=== PATIENT | male | born 1955 | race Caucasian/White ===

== ENCOUNTER 2018-02-12 07:52 | Observation (INO) | payer OTHER ==
--- NOTE | 2018-02-12 08:31 | EDPHY ---
H & P Stated Complaint: fever, body aches Time Seen by Provider: 02/12/18 07:57 HPI/ROS: CHIEF COMPLAINT: Fever, rigors, new rash HISTORY OF PRESENT ILLNESS: The patient presents to the ED with a one-week history of fever and rigors. The patient reports a temperature to 102.5 degrees at home. The patient was seen in the ED a week ago with similar symptoms. At that point time his workup was negative. He had started taking azithromycin which he was advised to continue. The patient also tells me that he was on Bactrim during that ED visit for prostatitis. The patient just completed a 10 day course of Bactrim yesterday. The patient denies any acute pain. He has chronic urinary issues from BPH. He denies acute cough or congestion. The patient does complain of myalgias and arthralgias. REVIEW OF SYSTEMS: A comprehensive 10 point review of systems is otherwise negative aside from elements mentioned in the history of present illness. Source: Patient Exam Limitations: No limitations - Personal History Current Tetanus/Diphtheria Vaccine: Yes Current Tetanus Diphtheria and Acellular Pertussis (TDAP): Yes - Medical/Surgical History Hx Asthma: Yes Hx Chronic Respiratory Disease: Yes Hx Diabetes: No Hx Cardiac Disease: No Hx Renal Disease: No Hx Cirrhosis: No Hx Alcoholism: No Hx HIV/AIDS: No Hx Splenectomy or Spleen Trauma: No Other PMH: kidney stones, glaucoma, COPD, asthma, PNA - Social History Smoking Status: Never smoked - Physical Exam Exam: General Appearance: Alert, no distress Eyes: Pupils equal and round no pallor or injection ENT, Mouth: Mucous membranes moist Respiratory: There are no retractions, lungs are clear to auscultation Cardiovascular: Regular rate and rhythm Gastrointestinal: Abdomen is soft and nontender, no masses, bowel sounds normal Neurological: A&O, normal motor function, normal sensory exam, normal cranial nerves Skin: Macular papular rash Musculoskeletal: Neck is supple nontender Extremities: symmetrical, full range of motion Constitutional: Initial Vital Signs Temperature (C) 37.2 C 02/12/18 07:58 Heart Rate 90 02/12/18 07:58 Respiratory Rate 20 02/12/18 07:58 Blood Pressure 99/72 L 02/12/18 07:58 O2 Sat (%) 98 02/12/18 07:58 O2 Delivery Mode Room Air Allergies/Adverse Reactions: No Known Allergies Allergy (Unverified 02/12/18 07:56) Home Medications: Medication Instructions Recorded Albuterol 02/05/18 Qvar 40 Redihaler (*) 02/05/18 Serovent 02/05/18 Flomax 02/12/18 Vyzulta 02/12/18 Medical Decision Making ED Course/Re-evaluation: Discussion: Patient presents the ED with fever, rigors and now a rash in the setting of recent antibiotic therapy for presumed prostatitis with Bactrim and azithromycin for a presumed upper respiratory infection. The patient was seen in the ED week ago and had negative blood cultures, an unremarkable chest x-ray and no identifiable source of infection noted on his exam. Workup in the emergency department demonstrates a normal CBC, the patient does have hyponatremia, normal renal function, normal sed rate, slightly elevated CRP and an unremarkable urinalysis. The patient's systemically feels quite ill. I do think that he likely is having a drug reaction from Bactrim as his symptoms did began approximately 3 days after taking this medication. Given the breath of his constitutional symptoms and slight hyponatremia I do feel that he should be admitted for observation to ensure a more significant drug reaction has not developing. Consultation was made with the hospitalist service at 9:20 a.m.. The patient will be admitted by Dr. Sykes today. The patient did receive 1 L of normal saline for dehydration and mild hyponatremia. The patient also received 1 mg of Ativan. Differential Diagnosis: Differential diagnosis considered includes dehydration, drug reaction, metabolic abnormality, viral syndrome, urinary tract infection, sepsis - Data Points Laboratory Results: Laboratory Results 02/12/18 08:10 02/12/18 08:10 02/12/18 02/12/18 02/12/18 08:45 08:45 08:10 WBC RBC Hgb Hct MCV MCH MCHC RDW Plt Count MPV Neut % (Auto) Lymph % (Auto) [place] % (Auto) Eos % (Auto) Baso % (Auto) Nucleat RBC Rel Count Absolute Neuts (auto) Absolute Lymphs (auto) Absolute Monos (auto) Absolute Eos (auto) Absolute Basos (auto) Absolute Nucleated RBC Immature Gran % Immature Gran # ESR VBG Lactic Acid 1.7 mmol/L mmol/L (0.7-2.1) Sodium 129 mEq/L L mEq/L (135-145) Potassium 4.0 mEq/L mEq/L (3.3-5.0) Chloride 97 mEq/L mEq/L (97-110) Carbon Dioxide 22 mEq/l mEq/l (22-31) Anion Gap 10 mEq/L mEq/L (6-14) BUN 24 mg/dL H mg/dL (7-23) Creatinine 1.2 mg/dL mg/dL (0.7-1.3) Estimated GFR > 60 Glucose 143 mg/dL H mg/dL (70-100) Calcium 9.3 mg/dL mg/dL (8.5-10.4) C-Reactive Protein 34.2 mg/L H mg/L (<10.0) Urine Color YELLOW Urine Appearance HAZY Urine pH 5.0 (5.0-7.5) Ur Specific [place] 1.021 (1.002-1.030) Urine Protein NEGATIVE (NEGATIVE) Urine Ketones 1+ H (NEGATIVE) Urine Blood NEGATIVE (NEGATIVE) Urine Nitrate NEGATIVE (NEGATIVE) Urine Bilirubin NEGATIVE (NEGATIVE) Urine Urobilinogen NEGATIVE EU EU (0.2-1.0) Ur Leukocyte Esterase NEGATIVE (NEGATIVE) Urine Glucose NEGATIVE (NEGATIVE) 02/12/18 08:10 WBC 8.00 10^3/uL 10^3/uL (3.80-9.50) RBC 5.30 10^6/uL 10^6/uL (4.40-6.38) Hgb 15.4 g/dL g/dL (13.7-17.5) Hct 42.9 % % (40.0-51.0) MCV 80.9 fL L fL (81.5-99.8) MCH 29.1 pg pg (27.9-34.1) MCHC 35.9 g/dL g/dL (32.4-36.7) RDW 13.5 % % (11.5-15.2) Plt Count 172 10^3/uL 10^3/uL (150-400) MPV 10.1 fL fL (8.7-11.7) Neut % (Auto) 69.1 % % (39.3-74.2) Lymph % (Auto) 14.3 % L % (15.0-45.0) [place] % (Auto) 10.3 % % (4.5-13.0) Eos % (Auto) 3.3 % % (0.6-7.6) Baso % (Auto) 0.4 % % (0.3-1.7) Nucleat RBC Rel Count 0.0 % % (0.0-0.2) Absolute Neuts (auto) 5.54 10^3/uL 10^3/uL (1.70-6.50) Absolute Lymphs (auto) 1.14 10^3/uL 10^3/uL (1.00-3.00) Absolute Monos (auto) 0.82 10^3/uL H 10^3/uL (0.30-0.80) Absolute Eos (auto) 0.26 10^3/uL 10^3/uL (0.03-0.40) Absolute Basos (auto) 0.03 10^3/uL 10^3/uL (0.02-0.10) Absolute Nucleated RBC 0.00 10^3/uL 10^3/uL (0-0.01) Immature Gran % 2.6 % H % (0.0-1.1) Immature Gran # 0.21 10^3/uL H 10^3/uL (0.00-0.10) ESR 3 MM/HR MM/HR (0-20) VBG Lactic Acid Sodium Potassium Chloride Carbon Dioxide Anion Gap BUN Creatinine Estimated GFR Glucose Calcium C-Reactive Protein Urine Color Urine Appearance Urine pH Ur Specific [place] Urine Protein Urine Ketones Urine Blood Urine Nitrate Urine Bilirubin Urine Urobilinogen Ur Leukocyte Esterase Urine Glucose Departure - Departure Disposition: [facility] Acute Clinical Impression: Drug reaction, Hyponatremia, Rigors Condition: Good Referrals: Jeramie Wagner MD [Primary Care Provider] - As per Instructions
[2018-02-12 08:34] LABS: PLATELET COUNT 172 10^3/uL (150-400)
[2018-02-12] MEDS ORDERED: LORazepam 2 MG/ML INJ IVP ONE (09:25)
[2018-02-12] MEDS ORDERED: NS 1,000 ML IV ONE (09:25)
[2018-02-12] MEDS ORDERED: ACETAMINOPHEN 500 MG TAB ONE (11:09)
[2018-02-12] MEDS ORDERED: ACETAMINOPHEN 500 MG TAB PO ONE (11:10)
[2018-02-12] MEDS ORDERED: ONDANSETRON 4 MG/2 ML VIAL IVP PRN (13:14)
[2018-02-12] MEDS ORDERED: ONDANSETRON DISINTEGRATING 4 MG TAB PO PRN (13:14)
[2018-02-12] MEDS ORDERED: OXYCODONE/APAP 5/325 TAB PO PRN (13:14)
[2018-02-12] MEDS ORDERED: ACETAMINOPHEN 325 MG TAB PO PRN (13:14)
[2018-02-12] MEDS: NS 1,000 ML IV SCH (14:07)
[2018-02-12] MEDS ORDERED: IBUPROFEN 200 MG TAB PO PRN (16:15)
[2018-02-12] MEDS ORDERED: MULTIVITAMINS 1 EACH TAB PO SCH (16:15)
[2018-02-12] MEDS ORDERED: ALBUTEROL 60 PUFFS/8 GM MDI IH PRN (16:15)
[2018-02-12] MEDS ORDERED: FAMOTIDINE 20 MG TAB PO PRN (16:15)
--- NOTE | 2018-02-12 19:21 | PDGENHP ---
History and Physical - Chief Complaint Fever - History of Present Illness This is a 62 yo male who p/w intermittent fever x 8 days. His temperature has been as high as 102.5 degrees. He denies any resp symptoms. He thinks he may have had flu like symptoms early about a week ago but does not have any currently. He does not have abdominal pain, diarrhea, or other symptoms. He denies flank pain. He denies urinary symptoms other than his usual difficulty with urination which is long standing and secondary to BPH. He reports that around Jan 29 he was seen by his Urologist and was started on Fesoteridine as well as Bactrim. He is unsure why he was started on Bactrim but thinks it may have been for prostatitis but reports a prostate exam which was unremarkable. He stopped the Fesoterdine 6 day later as he started having fevers and he attributed them to the Fesoteridine. He continued taking Bactrium until the 10 of February. He reports feeling like he was getting a pneumonia about a week ago and presented to the ER for evaluation. At that time he had started himself on a Zpack. W/u was negative and he was instructed to continue his Azithromycin which he took for a total of 5 days. In addition, he continued taking the Bactrim. In the ER he was noted to have a fever but otherwise vital signs were unremarkable. He had a urinalysis which was not indicative of infection. He was noted to have a low Na. He was given Ativan and Normal Saline. He was also noted to have a new rash involving his torso and back. No abx were started. He reports that with the fevers he gets chills and sweats. He reports some weight loss over the past month but attributes this to decreased appetite and low oral intake. He has not had recent travel. He does not know of any sick contacts. He does not have any hx of cancer. He has had BPH for several years. He notes that his PSA was recently elevated. He has a family hx of colon polyps and he gets colonoscopies every 5 years. He is due for one at this time. His colonoscopies to date are unremarkable. He reports bilateral knee pain, but denies pain to other joints. He denies sore throat. He denies RANGEL or neck pain. He denies pruritis PMH: kidney stones, glaucoma, COPD, asthma, PNA, BPH - Social History Smoking Status: Never smoked. He is . 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 [facility] FMHx: non contributory History Information - Allergies/Home Medication List Allergies/Adverse Reactions: No Known Allergies Allergy (Verified 02/12/18 10:02) Home Medications: Albuterol [Proventil Inhaler HFA (*)] 1 - 2 puffs IH Q4H PRN 02/05/18 [Last Taken 02/12/18] Beclomethasone Qvar 80 [Qvar 80 Redihaler (*)] 1 inh IH DAILY 02/05/18 [Last Taken 02/12/18] Salmeterol Diskus [Serevent Diskus (*)] 1 puffs IH BID 02/05/18 [Last Taken ] Hydrocodone/APAP 5/325 [[place] 5/325 (*)] 1 each PO DAILY PRN 02/12/18 [Last Taken Unknown] Ibuprofen [Motrin (*)] 200 mg PO DAILY PRN 02/12/18 [Last Taken Unknown] LORazepam [Ativan (*)] 0.25 mg PO HS PRN 02/12/18 [Last Taken Unknown] Latanoprostene Bunod [Vyzulta] 1 drop EACHEYE HS 02/12/18 [Last Taken 02/11/18] Multivitamins [Multivitamin (*)] 1 each PO Q7D 02/12/18 [Last Taken Unknown] Ranitidine HCl [Zantac 75] 75 mg PO DAILY PRN 02/12/18 [Last Taken Unknown] Tamsulosin HCl [Flomax 0.4 MG (*)] 0.4 mg PO DAILY 02/12/18 [Last Taken 02/12/18 ] guaiFENesin [Mucinex 600 MG (*)] 600 mg PO Q4HRS 02/12/18 [Last Taken 02/12/18] I have personally reviewed and updated: medical history - Social History Smoking Status: Never smoked Review of Systems Review of Systems: ROS: 10pt was reviewed & negative except for what was stated in HPI & below Physical Exam Physical Exam: Temp Pulse Resp BP Pulse Ox 37.2 C 82 19 116/68 95 02/12/18 15:50 02/12/18 15:50 02/12/18 15:50 02/12/18 15:50 02/12/18 15:50 O2 (L/minute) 1 Constitutional: no apparent distress Eyes: PERRL Ears, Nose, Mouth, Throat: moist mucous membranes, hearing normal Cardiovascular: regular rate and rhythym, no murmur, rub, or gallop, No edema Respiratory: no respiratory distress, no rales or rhonchi, clear to auscultation Gastrointestinal: normoactive bowel sounds, soft, non-tender abdomen, No guarding, No rebound, No distension Skin: warm, other (macular papular erythematous rash involving chest and back) Neurologic: AAOx3 Psychiatric: interacting appropriately, not anxious, not encephalopathic Lab Data & Imaging Review 02/12/18 08:10 02/12/18 13:13 WBC 8.00 10^3/uL (3.80-9.50) 02/12/18 08:10 RBC 5.30 10^6/uL (4.40-6.38) 02/12/18 08:10 Hgb 15.4 g/dL (13.7-17.5) 02/12/18 08:10 Hct 42.9 % (40.0-51.0) 02/12/18 08:10 MCV 80.9 fL (81.5-99.8) L 02/12/18 08:10 MCH 29.1 pg (27.9-34.1) 02/12/18 08:10 MCHC 35.9 g/dL (32.4-36.7) 02/12/18 08:10 RDW 13.5 % (11.5-15.2) 02/12/18 08:10 Plt Count 172 10^3/uL (150-400) 02/12/18 08:10 MPV 10.1 fL (8.7-11.7) 02/12/18 08:10 Neut % (Auto) 69.1 % (39.3-74.2) 02/12/18 08:10 Lymph % (Auto) 14.3 % (15.0-45.0) L 02/12/18 08:10 [place] % (Auto) 10.3 % (4.5-13.0) 02/12/18 08:10 Eos % (Auto) 3.3 % (0.6-7.6) 02/12/18 08:10 Baso % (Auto) 0.4 % (0.3-1.7) 02/12/18 08:10 Nucleat RBC Rel Count 0.0 % (0.0-0.2) 02/12/18 08:10 Absolute Neuts (auto) 5.54 10^3/uL (1.70-6.50) 02/12/18 08:10 Absolute Lymphs (auto) 1.14 10^3/uL (1.00-3.00) 02/12/18 08:10 Absolute Monos (auto) 0.82 10^3/uL (0.30-0.80) H 02/12/18 08:10 Absolute Eos (auto) 0.26 10^3/uL (0.03-0.40) 02/12/18 08:10 Absolute Basos (auto) 0.03 10^3/uL (0.02-0.10) 02/12/18 08:10 Absolute Nucleated RBC 0.00 10^3/uL (0-0.01) 02/12/18 08:10 Immature Gran % 2.6 % (0.0-1.1) H 02/12/18 08:10 Immature Gran # 0.21 10^3/uL (0.00-0.10) H 02/12/18 08:10 ESR 3 MM/HR (0-20) 02/12/18 08:10 VBG Lactic Acid 1.7 mmol/L (0.7-2.1) 02/12/18 08:45 Sodium 128 mEq/L (135-145) L 02/12/18 13:13 Potassium 3.6 mEq/L (3.3-5.0) 02/12/18 13:13 Chloride 102 mEq/L (97-110) 02/12/18 13:13 Carbon Dioxide 17 mEq/l (22-31) L 02/12/18 13:13 Anion Gap 9 mEq/L (6-14) 02/12/18 13:13 BUN 23 mg/dL (7-23) 02/12/18 13:13 Creatinine 1.1 mg/dL (0.7-1.3) 02/12/18 13:13 Estimated GFR > 60 02/12/18 13:13 Glucose 106 mg/dL (70-100) H 02/12/18 13:13 Calcium 8.1 mg/dL (8.5-10.4) L 02/12/18 13:13 C-Reactive Protein 34.2 mg/L (<10.0) H 02/12/18 08:10 Procalcitonin 0.69 ng/mL (0.02-0.10) H 02/12/18 08:10 Urine Color YELLOW 02/12/18 08:45 Urine Appearance HAZY 02/12/18 08:45 Urine pH 5.0 (5.0-7.5) 02/12/18 08:45 Ur Specific [place] 1.021 (1.002-1.030) 02/12/18 08:45 Urine Protein NEGATIVE (NEGATIVE) 02/12/18 08:45 Urine Ketones 1+ (NEGATIVE) H 02/12/18 08:45 Urine Blood NEGATIVE (NEGATIVE) 02/12/18 08:45 Urine Nitrate NEGATIVE (NEGATIVE) 02/12/18 08:45 Urine Bilirubin NEGATIVE (NEGATIVE) 02/12/18 08:45 Urine Urobilinogen NEGATIVE EU (0.2-1.0) 02/12/18 08:45 Ur Leukocyte Esterase NEGATIVE (NEGATIVE) 02/12/18 08:45 Urine Glucose NEGATIVE (NEGATIVE) 02/12/18 08:45 Assessment & Plan Assessment: #Fever of unclear etiology #Rigors #Rash #Hyponatremia #Hx of COPD, not in exacerbation #BPH Plan: Etiology of the Fever is unclear. His infectious w/u, including a CXR is unremarkable. He does not have Leukocytosis. Pc is slightly elevated. His ROS is unremarkable except for the rash. Will have ID evaluate. Will order additional labs. Will order viral studies. CRP elevation is noted He looks mildly dry and will determine Na response to additional IVF. Will also obtain urine studies The rash does not look infectious or cellulitic. It may be a response to the Bactrim. However, I'm not sure if this explains the concurrent fever. Will hold off on abx. He has been on Bactrim between the - and Azithromycin recently for a full treatment regimen. Will hold off on AI workup pending ID evaluation and clinical course Lovenox for DVT proph
[2018-02-12 20:58] LABS: HEPATITIS B SURFACE ANTIGEN NEGATIVE (NEGATIVE)
[2018-02-12 21:03] LABS: HEPATITIS A ANTIBODY IGM (BCH) NEGATIVE (NEGATIVE); HEPATITIS B CORE AB IGM NEGATIVE (NEGATIVE)
[2018-02-12 21:13] LABS: HEPATITIS C ANTIBODY TOTAL NEGATIVE (NEGATIVE); HIV TYPE 1 AND 2 NEGATIVE (NEGATIVE)
[2018-02-12] MEDS: LORazepam 0.5 MG TAB PO PRN (21:47)
[2018-02-12] MEDS: SALMETEROL DISKUS MDI IH SCH (21:53)
[2018-02-12] MEDS: HYDROCODONE/APAP 5/325 TAB PO PRN (23:15)
[2018-02-13] MEDS: NS 1,000 ML IV SCH ×2 (05:03→17:41)
[2018-02-13 05:38] LABS: PLATELET COUNT 193 10^3/uL (150-400)
[2018-02-13 08:52] LABS: INR 1.17 (0.83-1.16); PROTIME(PATIENT) 15.1 SEC (12.0-15.0)
[2018-02-13] MEDS: ENOXAPARIN 40 MG/0.4 ML SYR SC SCH (10:06)
[2018-02-13] MEDS: TAMSULOSIN HCL 0.4 MG CAP PO SCH (10:07)
[2018-02-13] MEDS: BECLOMETHASONE QVAR 80 REDIHALER 120 INH/10.6 GM MDI IH SCH (10:25)
[2018-02-13] MEDS: SALMETEROL DISKUS MDI IH SCH ×2 (10:26→18:45)
--- NOTE | 2018-02-13 11:02 | HOSPPROG ---
Hospitalist Progress Note Assessment/Plan: 62-year-old with 8 days of intermittent fevers, extreme weakness and lethargy is admitted for FUO. Of note he was recently seen on January 29 by his urologist and started on Bactrim. He apparently had an elevated PSA and he was started on the Fesoterodine and Bactrim for possible prostatitis prior to further evaluation of elevation of his PSA. He denies any worsening symptoms of prostatitis IV pain fevers chills prior to this. He has had ongoing urinary frequency for a long time that has been worsening. No other symptoms such as cough abdominal pain. # FUO, I suspect that this is likely a drug reaction from the Bactrim. He continues to have low-grade fevers today but no high fevers. Blood cultures are pending * Will discuss with ID if any further evaluation is warranted since he is improving and if he can be discharged later today with close follow-up or monitor overnight * Would consider to monitor him overnight check blood cultures in the morning * Monitor his fever curve overnight * If he continues to improve he can be discharged tomorrow morning. # BPH: We can likely resume the Fesoterodine as an outpatient once his fever has completely resolved. He will follow up with his Urology as an outpatient # history of kidney stones # COPD/asthma, asymptomatic # glaucoma Subjective: Patient new to me and chart reviewed. Feeling a little bit better was able to eat today but did have an episode of liquid diarrhea. He notes this is the 1st time he has been able to eat quite some time. He has bilateral hip and knee pain but it does get better when he walks. Objective: Vital Signs Temp Pulse Resp BP Pulse Ox 37.3 C 76 16 110/70 96 02/13/18 07:44 02/13/18 07:44 02/13/18 07:44 02/13/18 07:44 02/13/18 07:44 Microbiology 02/12/18 11:05 Respiratory Panel (PCR) - Final Nasal, Sinus - Anaerobic Tube/Swab No Organism Detected By Pcr Laboratory Results 02/13/18 04:51 02/13/18 04:51 02/12/18 02/13/18 02/14/18 05:59 05:59 05:59 Intake Total 1295 Output Total 500 400 Balance 795 -400 PT 15.1 SEC (12.0-15.0) H 02/13/18 04:51 INR 1.17 (0.83-1.16) H 02/13/18 04:51 - Physical Exam Constitutional: no apparent distress Eyes: PERRL Ears, Nose, Mouth, Throat: moist mucous membranes Cardiovascular: regular rate and rhythym Respiratory: no respiratory distress, clear to auscultation Gastrointestinal: normoactive bowel sounds Genitourinary: no bladder fullness Skin: warm Musculoskeletal: normal joint ROM, No muscular tenderness Neurologic: AAOx3 Psychiatric: interacting appropriately ICD10 Worksheet Patient Problems: Problems Problem Status Onset Drug reaction Acute Hyponatremia Acute Rigors Acute
[2018-02-13] MEDS: HYDROCODONE/APAP 5/325 TAB PO PRN (20:55)
[2018-02-13] MEDS: LORazepam 0.5 MG TAB PO PRN (21:00)
[2018-02-14 07:42] VITALS: BP 121/70
[2018-02-14] MEDS: BECLOMETHASONE QVAR 80 REDIHALER 120 INH/10.6 GM MDI IH SCH (09:46)
[2018-02-14] MEDS: SALMETEROL DISKUS MDI IH SCH (09:47)
[2018-02-14] MEDS: TAMSULOSIN HCL 0.4 MG CAP PO SCH (09:57)
[2018-02-14] MEDS: ENOXAPARIN 40 MG/0.4 ML SYR SC SCH (09:58)
--- NOTE | 2018-02-14 10:00 | GDS ---
DIAGNOSES: 1. Fever, rash, likely secondary to sulfa allergy. 2. BPH. 3. Elevated prostate-specific antigen. 4. Reactive airway disease. 5. Glaucoma. 6. History of kidney stones. HOSPITAL COURSE: The patient is a very nice 62-year-old man with a history significant for BPH and e levated PSA. He recently saw his urologist who started him on Bactrim for possible prostatitis to se e if his PSA would improve after treatment. He was placed on Bactrim, and after 2 weeks, he noted in creasing fevers and a slight rash on his abdomen and back. He became quite ill with malaise, fevers, and was in bed for almost a week before he was encouraged to come to the emergency room by his . He was admitted overnight, continued to have some fevers. Blood cultures were drawn and his Bactri m was discontinued. Over the course of hospitalization, he eventually defervesced. Blood cultures were negative. Respir atory panel was negative and the rest of his exam was unremarkable. It was felt that all symptoms we re likely related to a reaction to the Bactrim. At time of discharge, he is feeling slightly better, but still not at baseline. Vital signs have bee n stable with a temperature of 37.1, heart rate 76, blood pressure 121/70. He is 94% on room air. DISCHARGE MEDICATIONS: Please see discharge medication form. He will resume his home medications. FOLLOWUP INSTRUCTIONS: He should follow up with Dr. Wagner this week and follow up with his urolog ist as scheduled. Bactrim will be listed as an allergy. Total time spent with patient on day of discharge and coordination of care is 35 minutes. /[id number]/MODL
== END 2018-02-14 10:52 | disposition home or self-care (01) ==
LOC: F3E 11:16
PROVIDERS: ADMIT Family Medicine; ATTEND Internal Medicine
DX: R50.9 Fever, unspecified (principal); R21 Rash and other nonspecific skin eruption; E87.1 Hypo-osmolality and hyponatremia; E86.0 Dehydration; N40.1 Benign prostatic hyperplasia with lower urinary tract symptoms; R97.20 Elevated prostate specific antigen [PSA]; J44.9 Chronic obstructive pulmonary disease, unspecified; J45.909 Unspecified asthma, uncomplicated; H40.9 Unspecified glaucoma; Z87.442 Personal history of urinary calculi; Z83.71 Family history of colonic polyps; Z88.2 Allergy status to sulfonamides
CPT/HCPCS: 71045; 96372; 96374; 99285; G0378; G0472; J1650; J2060

== ENCOUNTER → 2018-02-17 | Outpatient (CLI) | payer OTHER | LOC: FIMAGING 15:31 | PROVIDERS: ATTEND Internal Medicine | DX: I82.4Z1 Acute embolism and thrombosis of unspecified deep veins of right distal lower extremity (principal) ==